=== PATIENT | female | born 1990 | race African-American/Black ===

== ENCOUNTER 2021-08-31 11:03 | Inpatient (IN) | payer OTHER ==
[2021-08-31] MEDS ORDERED: Ondansetron PF 4 MG/2 ML Vial IVP PRN ×2 (11:58→15:52)
[2021-08-31] MEDS ORDERED: Lidocaine 1% (PF) 30 ML VIAL SC PRN (11:58)
[2021-08-31] MEDS ORDERED: Misoprostol 200 MCG TAB PR PRN (11:58)
[2021-08-31] MEDS ORDERED: Diphenoxylate HCl/Atropine Tablet PO PRN (11:58)
[2021-08-31] MEDS ORDERED: Ibuprofen 800 MG TAB PO PRN (11:58)
[2021-08-31] MEDS ORDERED: Butorphanol Tartrate 1 MG/ML VIAL SLOW IVP PRN (11:58)
[2021-08-31] MEDS ORDERED: HYDROcodone/Acetaminophen 5/325 mg Tablet PO PRN ×4 (11:58→15:52)
[2021-08-31] MEDS ORDERED: Acetaminophen 500 MG TAB PO PRN (11:58)
[2021-08-31] MEDS ORDERED: Methylergonovine 0.2 MG/ML VIAL IM PRN ×2 (11:58→15:52)
[2021-08-31] MEDS ORDERED: hydrALAZINE 20 MG/ML VIAL SLOW IVP PRN ×2 (11:58→15:52)
[2021-08-31] MEDS ORDERED: Promethazine HCl 25 MG/ML VIAL IM PRN (11:58)
[2021-08-31] MEDS ORDERED: Carboprost 250 MCG/ML AMP IM PRN (11:58)
[2021-08-31] MEDS ORDERED: Lactated Ringer's 1,000 ML IV SCH (12:00)
[2021-08-31] MEDS ORDERED: NS w/ Oxytocin 30 units 500 ML IV SCH ×2 (12:00)
[2021-08-31 14:48] LABS: Hemoglobin 12.4 g/dL (12.0-15.5); Mean Corpuscular HGB CONC 32.3 g/dL (32.0-36.0); Mean Corpuscular Hemoglobin 30.2 pg (27.0-33.0); Mean Corpuscular Volume 93.7 fl (81.6-98.3); Platelet Count 171 10x3/uL (150-450); RBC Distribution Width 14.6 % (11.5-14.5); White Blood Cell (WBC) Count 17.5 10x3/uL (3.5-10.5)
[2021-08-31 15:09] VITALS: BMI 32.5
[2021-08-31 15:27] LABS: Hep B Surf Ag Non-Reactive S/CO (NonReactive); Syphilis Antibody Nonreactive (Nonreactive); Syphilis Antibody Index 0.04 S/CO (<1.00 Non-Reactive)
[2021-08-31] MEDS ORDERED: Bisacodyl 10 MG SUPP PR PRN (15:52)
[2021-08-31] MEDS ORDERED: NS w/ Oxytocin 30 units 500 ML IV PRN (15:52)
[2021-08-31] MEDS ORDERED: Benzocaine-Menthol 82.5 ML CAN TOP PRN (15:52)
[2021-08-31] MEDS ORDERED: Lanolin Ointment 7 GM TUBE TOP PRN (15:52)
[2021-08-31] MEDS ORDERED: Milk Of Magnesia 30 ML UDCUP PO PRN (15:52)
[2021-08-31] MEDS ORDERED: Misoprostol 200 MCG TAB VAG PRN (15:52)
[2021-08-31 16:16] LABS: SARS-CoV-2 NAA Rapid Test Not Detected (NotDetected)
[2021-08-31] MEDS: Ferrous Sulfate 325 MG TAB PO SCH (18:14)
[2021-08-31] MEDS: Docusate 100 MG CAP PO SCH (21:25)
[2021-08-31] MEDS: Ibuprofen 800 MG TAB PO SCH (21:26)
[2021-09-01] MEDS: Ibuprofen 800 MG TAB PO SCH ×3 (06:14→22:16)
[2021-09-01] MEDS: Docusate 100 MG CAP PO SCH ×2 (08:43→21:35)
[2021-09-01] MEDS: Prenatal Vitamin 1 TAB PO SCH (08:43)
[2021-09-01] MEDS: Ferrous Sulfate 325 MG TAB PO SCH ×2 (08:44→17:23)
[2021-09-02] MEDS: Ibuprofen 800 MG TAB PO SCH (06:13)
[2021-09-02] MEDS: Ferrous Sulfate 325 MG TAB PO SCH (07:43)
[2021-09-02 08:28] VITALS: BP 114/57; TEMP 97.6
[2021-09-02] MEDS: Docusate 100 MG CAP PO SCH (08:30)
[2021-09-02] MEDS: Prenatal Vitamin 1 TAB PO SCH (08:30)
== END 2021-09-02 10:35 | disposition home or self-care (01) | DRG 807 ==
LOC: CSHLD/OP 11:03 → CSHLD 12:48 → CSHPP 16:20
PROVIDERS: ADMIT Obstetrics & Gynecology; ATTEND Obstetrics & Gynecology
PROC: 10E0XZZ Delivery of Products of Conception, External Approach (ICD-10-PCS; principal; 2021-08-31)
DX: O99.62 Diseases of the digestive system complicating childbirth (principal); Z37.0 Single live birth; K42.9 Umbilical hernia without obstruction or gangrene; Z3A.39 39 weeks gestation of pregnancy; Z20.822 Contact with and (suspected) exposure to COVID-19; O70.0 First degree perineal laceration during delivery
CPT/HCPCS: 36415; 85027; 86780; 86850; 86900; 86901; 87340; 99285; U0002